=== PATIENT | female | born 1960 | race Caucasian/White ===

== ENCOUNTER 2017-11-04 22:19 | Emergency (ER) | payer OTHER ==
[~2017-11-04] VITALS: Ht 144.7 cm; Wt 40.8 kg
[~2017-11-04 22:19] MED LIST: AMOXICILLIN500 MG PO; SIMVASTATIN20 MG PO; TRAMADOL HCL50 MG PO
== END 2017-11-05 00:27 | disposition home or self-care (01) ==
LOC: ED 22:19
DX: S61.011A Laceration without foreign body of right thumb without damage to nail, initial encounter (principal); Z23 Encounter for immunization; F17.200 Nicotine dependence, unspecified, uncomplicated; Z79.899 Other long term (current) drug therapy; W22.8XXA Striking against or struck by other objects, initial encounter; Y93.89 Activity, other specified; Y92.89 Other specified places as the place of occurrence of the external cause; Y99.8 Other external cause status

== ENCOUNTER 2018-07-15 07:38 | Emergency (ER) | payer OTHER ==
[~2018-07-15] VITALS: Wt 59.0 kg
--- NOTE | ~2018-07-15 | EKG ---
[place], [place] ELECTROCARDIOGRAM REPORT NAME: ALEX PIERSON UNIT #: [id number] ROOM: DOCTOR: [place] DRAFT REPORT BIRTHDATE: [birth year] [facility] Test Date: 2018-07-15 Test Time: 08:00:37 Pat Name: ALEX PIERSON Department: Room: Gender: Forcer Maker: 13 : 1960 Requested By: DAMEON SHIN Order Number: [id number] Reading MD: Susan Cantu MD Measurements Intervals [place] Rate: 139 P: -32 MT: 252 QRS: 71 QRSD: 84 T: 32 QT: 360 QTc: 548 Interpretive Statements Atrial fibrillation with rapid ventricular response/ 139 Inferior infarct, acute Lateral leads are also involved Prolonged QT interval Electronically Signed On 07-17-2018 7:20:14 PST by Susan Cantu MD CM:EKGRPT:ELECTROCARDIOGRAM REPORT [id number] DAMEON ATKINSON DRAFT REPORT DAMEON SHIN M.D.
[2018-07-15 08:03] LABS: ABG O2 SATURATION 99.8 % (95-97); ARTERIAL BLOOD GAS PH 7.555 (7.35-7.45)
[2018-07-15 08:08] LABS: ABG BASE EXCESS 39.2 mmol/L (-2.0-2.0); ABG HCO3 67.2 mmol/l (22-26)
[2018-07-15 08:09] LABS: ARTERIAL BLOOD GAS PCO2 74.7 mmHg (35-45)
[2018-07-15 08:26] LABS: MEAN CELL VOLUME 90.9 fl (81.0-99.0); MEAN CORPUSCULAR HGB 28.8 pg (27.0-31.0); MEAN CORPUSCULAR HGB CONC 31.7 g/dl (33.0-37.0); MEAN PLATELET VOLUME 12.5 fl (9.6-12.3); NUCLEATED RED BLOOD CELL 0.2 % (0.0-0.0); PLATELET COUNT AUTOMATED 94 10*3/uL (130-400); RED BLOOD COUNT 1.32 10*6/uL (4.10-5.10); RED CELL DISTRI WIDTH 14.6 % (0-14.5); WHITE BLOOD COUNT 8.8 10*3/uL (4.8-10.8)
[2018-07-15 08:31] LABS: HEMOGLOBIN 3.8 g/dl (12.0-16.0)
[2018-07-15 08:41] LABS: ALKALINE PHOSPHATASE 188 U/L (45-117); BUN 21 mg/dl (7-24); CHLORIDE 95 mmol/L (98-107); CREATININE 1.02 mg/dL (0.55-1.02); POTASSIUM 3.6 mmol/L (3.5-5.1); SGOT/AST 142 IU/L (3-35); SGPT/ALT 62 U/L (12-78); SODIUM 138 mmol/L (136-145); TOTAL PROTEIN 3.4 gm/dL (6.4-8.2)
[2018-07-15 08:47] LABS: TOTAL CELLS COUNTED 100 #CELLS
[2018-07-15 08:48] LABS: PLATELET SUFFICIENCY LOW (NORMAL); POLYCHROMASIA SLIGHT
== END 2018-07-15 10:00 | disposition expired ==
LOC: ED 07:38
PROVIDERS: Emergency Medicine
DX: I46.9 Cardiac arrest, cause unspecified (principal)